=== PATIENT | male | born 1970 | race Two or more races ===

== ENCOUNTER 2016-11-13 12:36 | Emergency (ER) | payer SELFPAY ==
[~2016-11-13] VITALS: Ht 167.6 cm; Wt 122.5 kg
[~2016-11-13 12:36] MED LIST: CIPRO500 MG PO; NORCO 5/325 TAB1 TAB PO; VENTOLIN HFA18 G1 IH
[2016-11-13] MEDS ORDERED: GLUCOPHAGE XR500 M1 PO (12:49)
[2016-11-13] MEDS ORDERED: PRINIVIL5 M1 PO (12:50)
[2016-11-13] MEDS ORDERED: TERAZOSIN HCL1 M1 PO (12:50)
[2016-11-13] MEDS ORDERED: IBUPROFEN600 M1 PO (12:50)
== END 2016-11-13 14:35 ==
LOC: EDMED 12:36
PROC: 2W3UXYZ Immobilization of Right Toe using Other Device (ICD-10-PCS; principal; 2016-11-13)
DX: S92.514A Nondisplaced fracture of proximal phalanx of right lesser toe(s), initial encounter for closed fracture (principal); E11.9 Type 2 diabetes mellitus without complications; I10 Essential (primary) hypertension; J45.909 Unspecified asthma, uncomplicated; Z88.0 Allergy status to penicillin; Z87.891 Personal history of nicotine dependence; Z79.84 Long term (current) use of oral hypoglycemic drugs; Z79.899 Other long term (current) drug therapy; W22.8XXA Striking against or struck by other objects, initial encounter